=== PATIENT | female | born 1960 ===

== ENCOUNTER 2018-10-30 05:49 | Observation (INO) | payer OTHER ==
[2018-10-27 16:40] VITALS: BMI 26.6
[2018-10-30] MEDS ORDERED: Lactated Ringer's 1,000 ML IV ONE ×4 (07:10→14:38)
[2018-10-30 07:11] LABS: BASO # 0.1 K/uL (0.0-0.2); BASO % 0.7 % (0.0-2.0); EOS # 0.1 K/uL (0.0-0.7); EOS % 1.9 % (0.0-4.0); LYMPH # 2.3 K/uL (1.0-4.3); LYMPH % 30.7 % (20.0-40.0); MEAN CELL VOLUME 88.1 fl (81.0-99.0); MEAN CORPUSCULAR HEMOGLOBIN 28.7 pg (27.0-31.0); MEAN CORPUSCULAR HGB CONC 32.6 g/dL (33.0-37.0); MEAN PLATELET VOLUME 9.8 fl (7.2-11.7); MONO # 0.7 K/uL (0.0-0.8); MONO % 8.8 % (0.0-10.0); NEUT # 4.4 K/uL (1.8-7.0); NEUT % 57.9 % (50.0-75.0); RBC 4.53 Mil/uL (3.80-5.20); RED CELL DISTRIBUTION WIDTH 14.7 % (11.5-14.5); WHITE BLOOD COUNT 7.6 K/uL (4.8-10.8)
[2018-10-30] MEDS ORDERED: MethylPREDNISolone Depo 40 mg/ml Inj ONE (07:15)
[2018-10-30] MEDS ORDERED: Absorbable Gelatin Sponge Size 12-7 ONE (07:16)
[2018-10-30] MEDS ORDERED: Lidocaine 1% Inj (20ml) ONE (07:18)
[2018-10-30] MEDS ORDERED: cefTRIAXone (Rocephin) 1 gm Inj ONE (08:18)
[2018-10-30] MEDS ORDERED: Lidocaine 2% MPF (5 ml) Inj ONE (09:09)
[2018-10-30] MEDS ORDERED: Propofol 10 mg/ml Inj (20 ML) ONE ×5 (09:09→13:32)
[2018-10-30] MEDS ORDERED: Midazolam 2 MG/2 ML VIAL ONE (09:09)
[2018-10-30] MEDS ORDERED: Succinylcholine Chloride 20 mg/ml Syr (5 ml) IV ONE (09:10)
[2018-10-30] MEDS ORDERED: Rocuronium 10 mg/ml (5 ml) ONE ×2 (09:11→11:33)
[2018-10-30] MEDS ORDERED: Dexamethasone 4 mg/1 ml ONE (11:18)
[2018-10-30] MEDS ORDERED: Desflurane Inhalation Anesthetic Liq (240 ml) ONE (11:33)
[2018-10-30] MEDS ORDERED: Vancomycin 1 g Inj IVPB ONE ×2 (12:35→14:01)
[2018-10-30] MEDS ORDERED: Neostigmine 1:1000 (1 mg/ml) Inj ONE (14:07)
[2018-10-30] MEDS ORDERED: MethylPREDNISolone Depo 40 mg/ml Inj INJ ONE (14:08)
[2018-10-30] MEDS ORDERED: Lidocaine 1% Inj (20ml) IJ ONE (14:08)
[2018-10-30] MEDS ORDERED: Lactated Ringer's 500 ML IV ONE (14:38)
--- NOTE | 2018-10-30 14:48 | RAD ---
Date of service: 10/30/2018 PROCEDURE: Intraoperative fluoroscopy HISTORY: C4-C7 ACDF COMPARISON: Not available TECHNIQUE: Intraoperative fluoroscopy was provided for anterior cervical fixation. Total time of fluoroscopy was 23.1 sec. The cumulative dose was 2.58 mGy. FINDINGS: Multiple fluoroscopic spot films are submitted demonstrating anterior fixation from C4 through C7. IMPRESSION: Fluoroscopy provided.
[2018-10-30] MEDS: HYDROmorphone 0.5 mg/0.5 ml ISec IVP PRN ×4 (15:24→16:55)
[2018-10-30] MEDS: Lactated Ringer's 1,000 ML IV SCH (17:36)
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
[2018-10-30] MEDS ORDERED: Oxycodone/Acetaminophen 5/325 mg Tab PO PRN ×2 (20:17→20:18)
[2018-10-31] MEDS: Lactated Ringer's 1,000 ML IV SCH (04:32)
[2018-10-31] MEDS ORDERED: Simethicone 80 mg Chewtab PO ONE (04:58)
[2018-10-31 07:30] LABS: BASO % 0.1 % (0.0-2.0); HEMOGLOBIN 11.8 g/dL (12.0-16.0); LYMPH % 6.1 % (20.0-40.0); MEAN CORPUSCULAR HEMOGLOBIN 28.9 pg (27.0-31.0); MEAN CORPUSCULAR HGB CONC 33.2 g/dL (33.0-37.0); MONO # 1.2 K/uL (0.0-0.8); MONO % 7.1 % (0.0-10.0); NEUT # 14.4 K/uL (1.8-7.0); NEUT % 86.7 % (50.0-75.0); PLATELET COUNT 208 K/uL (130-400); RBC 4.09 Mil/uL (3.80-5.20); RED CELL DISTRIBUTION WIDTH 14.7 % (11.5-14.5); WHITE BLOOD COUNT 16.6 K/uL (4.8-10.8)
[2018-10-31 07:41] LABS: BLOOD UREA NITROGEN 12 mg/dl (7-17); CALCIUM 9.1 mg/dL (8.4-10.2); GFR NON-AFRICAN AMERICAN > 60
[2018-10-31 08:46] VITALS: BP 122/84; PULSE 79; RESP 20; TEMP 98.4; O2SAT 99
[2018-10-31] MEDS ORDERED: Oxycodone/Acetaminophen 5/325 mg Tab PO PRN (09:16)
[2018-10-31] MEDS ORDERED: Lactated Ringer's 1,000 ML IV SCH (09:22)
[2018-10-31 09:32] LABS: LYMPHOCYTE 11 % (20-50); MONOCYTE 6 % (0-10); NEUTROPHIL 83 % (42-75); PLATELET ESTIMATE NORMAL (NORMAL); TOTAL CELLS COUNTED 100
[2018-10-31 09:33] LABS: ANISOCYTOSIS SLIGHT; LARGE PLATELETS PRESENT; OVALOCYTES MODERATE; SPHEROCYTES SLIGHT
[2018-10-31] MEDS ORDERED: Sucralfate 1 gm/10 ml Oral Susp UD PO SCH (10:00)
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
[2018-10-31] MEDS ORDERED: Enoxaparin 40 mg Syringe SC SCH (21:00)
== END 2018-10-31 15:34 | disposition home or self-care (01) ==
LOC: H.OPSURG 05:49 → H.MEDSURG1 18:37 → INTOOBSV 18:37
PROVIDERS: ADMIT Student in an Organized Health Care Education/Training Program; ATTEND Student in an Organized Health Care Education/Training Program
DX: M50.221 Other cervical disc displacement at C4-C5 level (principal); M50.222 Other cervical disc displacement at C5-C6 level; M50.223 Other cervical disc displacement at C6-C7 level; M48.02 Spinal stenosis, cervical region; G89.29 Other chronic pain; R56.9 Unspecified convulsions; R73.03 Prediabetes; V89.2XXD Person injured in unspecified motor-vehicle accident, traffic, subsequent encounter; Z91.040 Latex allergy status; Z86.73 Personal history of transient ischemic attack (TIA), and cerebral infarction without residual deficits; Z87.440 Personal history of urinary (tract) infections; Z82.3 Family history of stroke; Z82.49 Family history of ischemic heart disease and other diseases of the circulatory system; Y92.410 Unspecified street and highway as the place of occurrence of the external cause
CPT/HCPCS: 20930; 22551; 22552; 22845; 22853; 36415; 80048; 82948; 85025; 86850; 86900; 88304; 96374; 96375; 96376; 97162; C1713; G0378; G8978; G8979; J0690; J0696; J1030; J1100; J1170; J2250; J2405; J2704; J2710; J2765; J3010; J7030; J7120